=== PATIENT | female | born 1985 | race Asian ===

== ENCOUNTER 2023-03-02 15:28 | Outpatient (CLI) | payer BC ==
[2023-03-02 16:27] LABS: HEMATOCRIT 37.3 % (31.2-41.9); MEAN CORPUSCULAR HEMOGLOBIN 29.6 uug (24.7-32.8); MEAN CORPUSCULAR VOLUME 88.1 fL (75.5-95.3); PLATELET COUNT (AUTO) 327 K/uL (179-408)
[2023-03-03 08:06] LABS: HEPATITIS B SURFACE AG Negative (Negative)
== END 2023-03-02 23:59 | disposition home or self-care (01) ==
LOC: LAB 15:28
PROVIDERS: ATTEND Obstetrics & Gynecology
DX: E84.9 Cystic fibrosis, unspecified (principal); R53.83 Other fatigue
CPT/HCPCS: 36415; 84443; 85025; 86592; 86762; 86803; 86850; 86900; 86901; 87340; 87806

== ENCOUNTER 2023-03-17 07:45 | Emergency (ER) | payer BC, OTHER ==
[~2023-03-17] VITALS: Ht 152.4 cm; Wt 54.4 kg
--- NOTE | 2023-03-17 07:59 | NUR ---
seen and examined by
[2023-03-17 08:44] LABS: *BILIRUBIN,URIN NEGATIVE (NEGATIVE); *BLOOD, URINE 3+ (NEGATIVE); *CLARITY,URINE TURBID (CLEAR); *COLOR,URINE YELLOW (YELLOW); *KETONES,URINE NEGATIVE (NEGATIVE); *UROBILINOGEN,URINE 0.2 E.U./dl (NORMAL); LEUKOCYTE ESTERASE ,URINE 1+ (NEGATIVE); NITRITE, URINE NEGATIVE (NEGATIVE); PH,URINE 5.5 (5.0-8.0); UGLUCOSE NEGATIVE (NEGATIVE)
[2023-03-17 08:47] LABS: HEMATOCRIT 33.7 % (31.2-41.9); MEAN CORPUSCULAR HEMOGLOBIN 29.2 uug (24.7-32.8); PLATELET COUNT (AUTO) 282 K/uL (179-408)
[2023-03-17 08:50] LABS: CARBON DIOXIDE 24 mmol/L (21-32); CHLORIDE 100 mmol/L (98-107); CREATININE 0.4 mg/dL (0.6-1.3); GLUCOSE 111 mg/dL (74-106); POTASSIUM 3.6 mmol/L (3.5-5.1); UREA NITROGEN, BLOOD 11 mg/dL (7-18)
--- NOTE | 2023-03-17 09:18 | NUR ---
currently speaking to the patient and sig. other
--- NOTE | 2023-03-17 09:41 | NUR ---
Patient discharged to home in stable condition. Written and verbal after care instructions given. Patient verbalizes understanding of instructions. Stressed follow up or return to ER for worsening s/s.
[2023-03-17] MEDS ORDERED: CEPH500C2 PO (09:49)
[2023-03-17 09:54] VITALS: BP 111/70
[2023-03-17 10:48] LABS: RBC,URINE 20-50 /HPF (0-3)
[2023-03-17 10:49] LABS: BACTERIA,URINE MODERATE /HPF (NONE SEEN); MUCUS,URINE MANY /LPF (0-FEW); SQUAMOUS EPITHELIAL CELL,UR FEW /HPF (NONE SEEN)
== END 2023-03-17 09:55 | disposition home or self-care (01) ==
LOC: ER 07:45
DX: O20.0 Threatened abortion (principal); O20.8 Other hemorrhage in early pregnancy; O23.41 Unspecified infection of urinary tract in pregnancy, first trimester; Z3A.12 12 weeks gestation of pregnancy
CPT/HCPCS: 36415; 76856; 85025; 86850; 86900; 86901; A4663